=== PATIENT | female | born 1945 | race Caucasian/White ===

== ENCOUNTER → 2016-05-14 | Outpatient (REF) | payer MEDICARE, OTHER ==
[2016-05-14 11:17] LABS: ALKALINE PHOSPHATASE 83 U/L (38-126); BASOPHILS % (AUTO) 1 % (0-2); BUN/CREATININE RATIO 37 (10-20); CALCULATED IONIZED CALCIUM 3.9 mg/dL (3.8-4.6); EOSINOPHILS # (AUTO) 0.4 10^3uL; EOSINOPHILS % (AUTO) 4 % (0-4); LYMPHOCYTES # (AUTO) 2.9 X10^3; MEAN CORPUSCULAR HGB CONC 33.1 g/dL (31.0-37.0); MEAN CORPUSCULAR VOLUME 91 FL (80-100); MEAN PLATELET VOLUME 10.3 FL (6.0-9.5); MONOCYTES # (AUTO) 0.7 X10^3; MONOCYTES % (AUTO) 8 % (3-11); NEUTROPHILS # (AUTO) 5.1 X10^3; NEUTROPHILS % (AUTO) 56 % (51-67); PLATELET COUNT 261 10^3uL (150-450); TOTAL PROTEIN 7.9 g/dL (6.4-8.5); WHITE BLOOD COUNT 9.06 10^3uL (4.0-11.0)
== END ==
LOC: LAB 11:12
PROVIDERS: ATTEND Family Medicine
DX: I10 Essential (primary) hypertension (principal); Z79.899 Other long term (current) drug therapy
CPT/HCPCS: 80053; 85025

== ENCOUNTER → 2016-08-23 | Outpatient (REF) | payer MEDICARE, OTHER ==
[2016-08-23 15:04] LABS: BILIRUBIN,URINE Negative (Negative); CLARITY,URINE Clear; COLOR,URINE Yellow; GLUCOSE, URINE (UA) Negative (Negative); LEUKOCYTE ESTERASE ,URINE 3+ (Negative)
[2016-08-23 15:06] LABS: URINE CENTRIFUGED VOLUME <10mL Unspun
== END ==
LOC: LAB 14:27
PROVIDERS: ATTEND Family Medicine
DX: R30.0 Dysuria (principal)
CPT/HCPCS: 81003; 81015; 87088